=== PATIENT | male | born 1955 | race Caucasian/White ===

== ENCOUNTER 2017-08-13 08:32 | Emergency (ER) | payer OTHER ==
[~2017-08-13] VITALS: Ht 193 cm; Wt 95.5 kg
[2017-08-13 08:51] VITALS: BP 135/83
[2017-08-13] MEDS ORDERED: OLAN2.5T3 PO (09:07)
== END 2017-08-13 11:49 | disposition home or self-care (01) ==
LOC: EMS 08:35
DX: Z46.6 Encounter for fitting and adjustment of urinary device (principal); N40.0 Benign prostatic hyperplasia without lower urinary tract symptoms; I51.9 Heart disease, unspecified; F17.210 Nicotine dependence, cigarettes, uncomplicated; Z76.0 Encounter for issue of repeat prescription; Z88.5 Allergy status to narcotic agent
CPT/HCPCS: 99283

== ENCOUNTER 2017-08-21 18:28 | Emergency (ER) | payer OTHER ==
[~2017-08-21] VITALS: Ht 193 cm; Wt 95.5 kg
[~2017-08-21 18:28] MED LIST: OLAN2.5T3 PO
[2017-08-21] MEDS ORDERED: TAMS0.4C32 PO (18:29)
[2017-08-21] MEDS ORDERED: ACETAMINOPHEN 325 MG TABLET PO ONE (18:45)
[2017-08-21] MEDS ORDERED: GuaiFENesin/D-METHORPHAN [SUGAR-FREE] 200-20MG/10 ML SYRUP UDCUP PO ONE (18:45)
[2017-08-21] MEDS ORDERED: IBUPROFEN 800 MG TABLET PO ONE (19:00)
[2017-08-21] MEDS ORDERED: OSELTAMIVIR PHOSPHATE 75 MG CAPSULE PO ONE (19:00)
[2017-08-21 19:06] LABS: INFLUENZA TYPE A NEGATIVE FOR TYPE A (NEGATIVE); INFLUENZA TYPE B NEGATIVE FOR TYPE B (NEGATIVE)
[2017-08-21 19:41] VITALS: BP 128/81
== END 2017-08-21 19:47 | disposition home or self-care (01) ==
LOC: EMS 18:30
DX: J06.9 Acute upper respiratory infection, unspecified (principal); F17.210 Nicotine dependence, cigarettes, uncomplicated
CPT/HCPCS: 87804; 99284